=== PATIENT | female | born 1985 | race Caucasian/White ===

== ENCOUNTER 2017-02-28 06:00 | Inpatient (IN) | payer BC ==
--- NOTE | 2017-02-27 19:15 | PCM.LDHP ---
L&D History of Present Illness - General Date of Service: 02/27/17 Admit Problem/Dx: Admission Diagnosis/Problem Admission Diagnosis/Problem Source of Information: Patient, Family, Old Records, RN Notes Reviewed, Other ( [place]) History Limitations: Reports: No Limitations - History of Present Illness Introduction:: 32 yo at term,being admitted for an elective C section secondary to Polyhydramnios. Her EDC is 03/10. Fairly unremarkable course of ,with the exception of the polydramnios. - Related Data Allergies/Adverse Reactions: Allergies Allergy/AdvReac Type Severity Reaction Status Date / Time No Known Allergies Allergy Verified 02/15/17 01:58 Home Medications: Home Meds PNV #116/Iron Fumarate/FA/DHA [Expecta Combo Pack] 1 tab-cap PO DAILY 02/15/17 [History] buPROPion [Wellbutrin XL] 150 mg PO DAILY 02/15/17 [History] Past Medical History EDGE DYER History: Reports: , Spontaneous , Other (See Below) Other OB/BYN History: c/s deliveries Psychiatric History: Reports: Anxiety Hematologic History: Reports: Other (See Below) Other Hematologic History: low hgb following miscarriage [id number] - Infectious Disease History Infectious Disease History: Reports: Chicken Pox - Past Surgical History HEENT Surgical History: Reports: Adenoidectomy, Oral Surgery, Tonsillectomy Social & Family History - Family History Family Medical History: Noncontributory - Tobacco Use Smoking Status *Q: Never Smoker Second Hand Smoke Exposure: No - Caffeine Use Caffeine Use: Reports: None - Recreational Drug Use Recreational Drug Use: No H&P Review of Systems - Review of Systems: Review Of Systems: ROS reveals no pertinent complaints other than HPI. L&D Exam - Exam Exam: See Below - Vital Signs Weight: 104.326 kg - Exam General: Alert, Oriented, Cooperative HEENT: PERRLA, Conjunctiva Clear Neck: Supple Lungs: Clear to Auscultation, Normal Respiratory Effort Cardiovascular: Regular Rate, Regular Rhythm. No: Systolic Murmur, Diastolic Murmur Abdomen: Normal Bowel Sounds, Soft Rectal Exam: Deferred Genitourinary: Normal external exam, Cervical dilitation. No: Vaginal bleeding Back Exam: Normal Inspection, Full Range of Motion Extremities: Normal Inspection Skin: Warm, Dry Neurological: Cranial Nerves Intact, Reflexes Equal Bilateral, Strength Equal Bilateral, Sensation Intact. No: Focal Deficit Psychiatric: Alert, Normal Affect, Normal Mood - Patient Data Imaging Impressions Last 24 hrs: Biophysical Profile 03/25 last week - Problem List (1) Polyhydramnios affecting SNOMED Code(s): 21243667, 191812313 ICD Code: O40.9XX0 - POLYHYDRAMNIOS, UNSP TRIMESTER, NOT APPLICABLE OR UNSP Status: Acute (2) H/O: section SNOMED Code(s): 206773787 ICD Code: Z98.891 - HISTORY OF UTERINE SCAR FROM PREVIOUS SURGERY Status: Acute Priority: Medium Problem List Initiated/Reviewed/Updated: Yes Assessment/Plan Comment:: Discussed benefits,risks,alternatives. Will proceed with repeat C section.
[~2017-02-28 06:00] MED LIST: Citric Acid/Sodium Citrate Solution 30 ML Cup PO ONE; Lactated Ringers 1,000 ML IV ONE; Scopolamine 1.5 MG Transdermal Patch TRDERM PRN; Sodium Chloride 0.9% 10 ML Syringe FLUSH PRN
[2017-02-28] MEDS ORDERED: Oxytocin 10 Units/1 ML SDV IV ONE (08:00)
[2017-02-28] MEDS ORDERED: Midazolam 1 MG/ML 2 ML SDV IV ONE (08:00)
[2017-02-28] MEDS ORDERED: Ondansetron 4 MG/2 ML SDV IVPUSH ONE (08:00)
[2017-02-28] MEDS ORDERED: Morphine PF 10 MG/10 ML SDV ONE (08:00)
[2017-02-28] MEDS ORDERED: ceFAZolin 1 GM Vial IV ONE (08:00)
[2017-02-28] MEDS ORDERED: Bupivacaine 0.75%/D5W 2 ML Amp ISPINAL ONE (08:00)
[2017-02-28] MEDS ORDERED: fentaNYL 100 MCG/2 ML SDV IV ONE (08:00)
[2017-02-28] MEDS ORDERED: Lactated Ringers 1,000 ML IV ONE (08:00)
[2017-02-28] MEDS ORDERED: ePHEDrine 50 MG/ML SDV IVPUSH PRN (09:12)
[2017-02-28] MEDS ORDERED: Naloxone 0.4 MG/ML SDV IVPUSH PRN ×2 (09:12→11:15)
--- NOTE | 2017-02-28 10:16 | OR ---
DATE OF OPERATION: 02/28/2017 SURGEON: Nader Hernandez MD PROCEDURE: section. PREOPERATIVE DIAGNOSES: 1. Polyhydramnios. 2. Repeat section. DISCHARGE DIAGNOSES: 1. Polyhydramnios. 2. Repeat section. ACCOUNTS RECEIVABLE ASSOCIATE: Dr. Sexton. ANESTHESIA: Regional. PERMIT: The patient accepted the risks and benefits of this procedure including bleeding, infection, and injury to the internal organs. DETAILS OF THE PROCEDURE: The patient was taken to the OR. She was draped and prepped in the usual sterile fashion lying on the supine position with a leftward tilt. A Pfannenstiel incision was made along the previous scar making sure to cauterize all the blood vessels encountered. The rectus fascia was scored in the middle and extended laterally with Ashley scissors. Using Elodia clamps, the rectus fascia was tented and the muscles sharply dissected from both the inferior and superior portions. The rectus muscles were in the middle using a knife and the peritoneum was entered sharply. After adequate exposure, a bladder blade was inserted, and an incision was made along the lower uterine segment. This was extended digitally in a caudocephalad fashion. The baby's head was delivered, and then, the entire baby delivered atraumatically. The cord was cut and clamped and the baby was handed to the awaiting nurses. Cord blood was obtained and the placenta was manually extracted. The uterus was exteriorized and the uterine incision closed in two layers to achieve adequate hemostasis. The uterus was returned to the maternal abdomen, and all the gutters were cleaned of all debris and clots. The rectus fascia was then closed with 0 Vicryl. The Dread's fascia and subcutaneous tissue were closed with 3-0 running stitch which was used to close the skin subcutaneously. The count was correct for laps, needles, and instruments x3. The patient received 2 g of Ancef before the incision. Estimated blood loss was about 400 mL. The baby was 9 pounds 3 ounce female live with score of 9 and 9. /[id number] SUZETTE/JANIE
[2017-02-28] MEDS: diphenhydrAMINE 50 MG/ML SDV IVPUSH PRN ×2 (10:51→18:14)
[2017-02-28] MEDS ORDERED: hydrOXYzine HCl 50 MG/ML SDV IM PRN (11:15)
[2017-02-28] MEDS ORDERED: Morphine 2 MG/ML Syringe IVPUSH PRN (11:15)
[2017-02-28] MEDS ORDERED: Promethazine 25 MG/ML SDV IV PRN ×2 (11:15)
[2017-02-28] MEDS ORDERED: Naloxone 0.4 MG in Sodium Chloride 0.9% 100 ML IV PRN (11:15)
[2017-02-28] MEDS ORDERED: diphenhydrAMINE 50 MG/ML SDV IVPUSH PRN (11:15)
[2017-02-28] MEDS ORDERED: Nalbuphine 10 MG/1 ML Vial IVPUSH PRN (11:15)
[2017-02-28] MEDS ORDERED: Ondansetron 4 MG/2 ML SDV IVPUSH PRN (11:17)
[2017-02-28] MEDS: Lactated Ringers 1,000 ML IV SCH ×3 (12:30→20:50)
[2017-02-28] MEDS: buPROPion 150 MG Tab.ER PO SCH (15:20)
[2017-03-01] MEDS: Ketorolac 15 MG/ML SDV IVPUSH PRN ×2 (00:54→07:23)
[2017-03-01] MEDS: diphenhydrAMINE 50 MG/ML SDV IVPUSH PRN (00:54)
[2017-03-01] MEDS: Lactated Ringers 1,000 ML IV SCH (00:55)
[2017-03-01] MEDS ORDERED: Remove SCOP Patch TRDERM ONE (07:00)
--- NOTE | 2017-03-01 08:53 | PCM.PNPP ---
- General Info Date of Service: 03/01/17 Functional Status: Reports: pain controlled, tolerating diet - Review of Systems General: Reports: No Symptoms HEENT: Reports: no symptoms Pulmonary: Reports: no symptoms Cardiovascular: Reports: No Symptoms Gastrointestinal: Reports: No symptoms Genitourinary: Reports: no symptoms Musculoskeletal: Reports: no symptoms Skin: Reports: no symptoms Neurological: Reports: No Symptoms Psychiatric: Reports: no symptoms - General Info Date of Service: 03/01/17 - Patient Data Vital Signs - most recent: Last Vital Signs Temp 99.1 F 02/28/17 20:00 Pulse 76 02/28/17 20:00 Resp 17 02/28/17 20:00 BP 100/56 L 02/28/17 20:00 Pulse Ox 96 02/28/17 20:00 Weight - most recent: 102.965 kg I&O - last 24 hours: Intake & Output 02/28/17 03/01/17 03/01/17 22:59 06:59 14:59 Intake Total 2700 600 Output Total 2200 1200 Balance 500 -600 Lab Results - last 24 hrs: Laboratory Results - last 24 hr 03/01/17 Range/Units 06:10 WBC 8.7 (4.5-12.0) X10-3/uL RBC 3.93 (3.23-5.20) x10(6)uL Hgb 11.3 L (11.5-15.5) g/dL Hct 34.0 (30.0-51.3) % MCV 86.4 (80-96) fL MCH 28.6 (27.7-33.6) pg MCHC 33.2 (32.2-35.4) g/dL RDW 13.7 (11.5-15.5) % Plt Count 132 (125-369) X10(3)uL Med Orders - Current: Current Medications Bupropion HCl (Wellbutrin Xl) 150 mg PO DAILY JOHNATHON Last Admin: 02/28/17 15:20 Dose: 150 mg Diphenhydramine HCl (Benadryl) 25 mg IVPUSH Q6H PRN PRN Reason: Itching or Nausea Last Admin: 03/01/17 00:54 Dose: 25 mg Diphenhydramine HCl (Benadryl) 25 mg IVPUSH ASDIRECTED PRN PRN Reason: PRURITUS Last Admin: 02/28/17 11:37 Dose: 25 mg Ephedrine Sulfate (Ephedrine Sulfate) 5 mg IVPUSH ASDIRECTED PRN PRN Reason: Other Hydroxyzine HCl (Vistaril) 25 - 50 mg IM Q4H PRN PRN Reason: N/V Lactated Ringer's (Ringers, Lactated) 1,000 mls @ 250 mls/hr IV ASDIRECTED JOHNATHON Last Admin: 03/01/17 00:55 Dose: 250 mls/hr Naloxone HCl 0.4 mg/ Sodium (Chloride) 101 mls @ 25 mls/hr IV ASDIRECTED PRN PRN Reason: RESPIRATORY STATUS Ketorolac Tromethamine (Toradol) 15 mg IVPUSH Q6H PRN PRN Reason: BREAKTHRU PAIN Last Admin: 03/01/17 07:23 Dose: 15 mg Morphine Sulfate (Morphine) 2 mg IVPUSH Q1H PRN PRN Reason: BREAKTHRU PAIN Nalbuphine HCl (Nubain) 10 mg IVPUSH Q1H PRN PRN Reason: PRURITUS Naloxone HCl (Narcan) 0.1 mg IVPUSH ASDIRECTED PRN PRN Reason: RESPIRATORY STATUS Ondansetron HCl (Zofran) 4 mg IVPUSH Q6H PRN PRN Reason: NAUSEA/VOMITING Promethazine HCl (Phenergan) 6.25 mg IV Q4H PRN PRN Reason: N/V Promethazine HCl (Phenergan) 12.5 mg IV Q4H PRN PRN Reason: N/V Scopolamine (Transderm-Scop) 1.5 mg TRDERM Q72H PRN PRN Reason: Nausea Last Admin: 02/28/17 07:00 Dose: 1.5 mg Sodium Chloride (Saline Flush) 10 ml FLUSH ASDIRECTED PRN PRN Reason: Keep Vein Open Last Admin: 02/28/17 07:00 Dose: 10 ml Discontinued Medications Bupivacaine HCl/Dextrose (Marcaine 0.75% Spinal) 1.4 ml ISPINAL .STK-MED ONE Stop: 02/28/17 08:01 Cefazolin Sodium (Ancef) 2 gm IV .STK-MED ONE Stop: 02/28/17 08:01 Citric Acid/Sodium Citrate (Bicitra Solution) 30 ml PO ONETIME ONE Stop: 02/28/17 06:01 Last Admin: 02/28/17 07:47 Dose: 30 ml Fentanyl (Sublimaze) 100 mcg IV .STK-MED ONE Stop: 02/28/17 08:01 Lactated Ringer's (Ringers, Lactated) 1,000 mls @ 999 mls/hr IV BOLUS ONE Stop: 02/28/17 07:00 Last Admin: 02/28/17 07:00 Dose: 999 mls/hr Lactated Ringer's (Ringers, Lactated) 1,000 mls @ as directed IV .STK-MED ONE Stop: 02/28/17 08:01 Midazolam HCl (Versed 1 Mg/Ml) 2 mg IV .STK-MED ONE Stop: 02/28/17 08:01 Miscellaneous Information (Remove Patch) 1 ea TRDERM ONETIME ONE Stop: 03/01/17 07:01 Morphine Sulfate (Duramorph Pf) 0.4 mg .XX .STK-MED ONE Stop: 02/28/17 08:01 Naloxone HCl (Narcan) 0.1 mg IVPUSH ONETIME PRN PRN Reason: Respiratory Depression Stop: 02/28/17 09:13 Ondansetron HCl (Zofran) 4 mg IVPUSH .STK-MED ONE Stop: 02/28/17 08:01 Oxytocin (Pitocin) 20 unit IV .STK-MED ONE Stop: 02/28/17 08:01 - Interaction Infant Disposition, : in Room with Family Support Person: - Recovery Exam Fundal Tone: Firm Fundal Level: 3 Fingerbreadths Above Umbilicus Fundal Placement: Midline Lochia Amount: Moderate Lochia Color: Rubra/Red Perineum Description: Intact, Minimal Bruising/Swelling Bladder Status: Indwelling Catheter in Place Urinary Elimination: Indwelling Catheter - Exam General: alert, oriented HEENT: Pupils equal Neck: supple Lungs: Clear to auscultation, Normal respiratory effort Cardiovascular: Regular Rate, Regular Rhythm Abdomen: bowel sounds present, soft, no tenderness, no distension Extremities: no edema Skin: warm, dry, intact Wound/Incisions: healing well Neurological: no new focal deficit Psy/Mental Status: alert, normal affect, normal mood - Problem List & Annotations (1) Polyhydramnios affecting SNOMED Code(s): 57752139, 893038269 Code(s): O40.9XX0 - POLYHYDRAMNIOS, UNSP TRIMESTER, NOT APPLICABLE OR UNSP Status: Acute Current Visit: Yes (2) H/O: section SNOMED Code(s): 136304740 Code(s): Z98.891 - HISTORY OF UTERINE SCAR FROM PREVIOUS SURGERY Status: Acute Priority: Medium Current Visit: Yes (3) care and examination SNOMED Code(s): 641102346, 541174957, 159154605 Code(s): Z39.2 - ENCOUNTER FOR ROUTINE FOLLOW-UP Status: Acute Current Visit: Yes - Problem List Review Problem List Initiated/Reviewed/Updated: Yes - My Orders Last 24 Hours: My Active Orders 02/28/17 09:12 Communication Order [RC] Per Unit Routine Communication Order [RC] Per Unit Routine Communication Order [RC] Per Unit Routine Intake and Output [RC] 14,,06 RT Incentive Spirometry [RC] Q4HWA diphenhydrAMINE [Benadryl] 25 mg IVPUSH Q6H PRN ePHEDrine [ePHEDrine Sulfate] 5 mg IVPUSH ASDIRECTED PRN Abdominal Binder [OM.PC] Per Unit Routine Breast Pump [WOMSER] Per Unit Routine Resuscitation Status Routine 02/28/17 09:15 Lactated Ringers [Ringers, Lactated] 1,000 ml IV ASDIRECTED 02/28/17 14:30 buPROPion [Wellbutrin XL] 150 mg PO DAILY 03/01/17 Breakfast Regular Diet [DIET] - Plan Plan:: BERTRAM IVF. BERTRAM HANLEY Start oral narcs for pain
[2017-03-01] MEDS: buPROPion 150 MG Tab.ER PO SCH (09:22)
[2017-03-01] MEDS: Ibuprofen 600 MG Tab PO SCH ×3 (09:25→21:20)
[2017-03-01] MEDS: Acetaminophen/HYDROcodone 325-5 MG Tab PO PRN ×2 (13:36→18:28)
[2017-03-02] MEDS: Ibuprofen 600 MG Tab PO SCH ×2 (03:14→08:12)
[2017-03-02] MEDS: Acetaminophen/HYDROcodone 325-5 MG Tab PO PRN (06:06)
[2017-03-02] MEDS: buPROPion 150 MG Tab.ER PO SCH (08:11)
[2017-03-02 08:16] VITALS: BP 118/64
--- NOTE | 2017-03-02 09:11 | PCM.PNPP ---
- General Info Date of Service: 03/02/17 - Review of Systems General: Reports: No Symptoms HEENT: Reports: no symptoms Pulmonary: Reports: no symptoms Cardiovascular: Reports: No Symptoms Gastrointestinal: Reports: No symptoms Genitourinary: Reports: no symptoms Musculoskeletal: Reports: no symptoms Skin: Reports: no symptoms Neurological: Reports: No Symptoms Psychiatric: Reports: no symptoms - General Info Date of Service: 03/02/17 - Patient Data Vital Signs - most recent: Last Vital Signs Temp 98.5 F 03/02/17 08:14 Pulse 80 03/02/17 08:14 Resp 16 03/02/17 08:14 BP 118/64 03/02/17 08:14 Pulse Ox 98 03/01/17 20:00 Weight - most recent: 102.965 kg I&O - last 24 hours: Intake & Output 03/01/17 03/02/17 03/02/17 22:59 06:59 14:59 Intake Total 400 700 Output Total 650 Balance -250 700 Med Orders - Current: Current Medications Hydrocodone Bitart/Acetaminophen (Albertson 325-5 Mg) 1 tab PO Q4H PRN PRN Reason: Breakthrough Pain Last Admin: 03/02/17 06:06 Dose: 1 tab Bupropion HCl (Wellbutrin Xl) 150 mg PO DAILY JOHNATHON Last Admin: 03/02/17 08:11 Dose: 150 mg Diphenhydramine HCl (Benadryl) 25 mg IVPUSH Q6H PRN PRN Reason: Itching or Nausea Last Admin: 03/01/17 00:54 Dose: 25 mg Diphenhydramine HCl (Benadryl) 25 mg IVPUSH ASDIRECTED PRN PRN Reason: PRURITUS Last Admin: 02/28/17 11:37 Dose: 25 mg Ephedrine Sulfate (Ephedrine Sulfate) 5 mg IVPUSH ASDIRECTED PRN PRN Reason: Other Hydroxyzine HCl (Vistaril) 25 - 50 mg IM Q4H PRN PRN Reason: N/V Naloxone HCl 0.4 mg/ Sodium (Chloride) 101 mls @ 25 mls/hr IV ASDIRECTED PRN PRN Reason: RESPIRATORY STATUS Ibuprofen (Motrin) 600 mg PO Q6H JOHNATHON Last Admin: 03/02/17 08:12 Dose: 600 mg Morphine Sulfate (Morphine) 2 mg IVPUSH Q1H PRN PRN Reason: BREAKTHRU PAIN Nalbuphine HCl (Nubain) 10 mg IVPUSH Q1H PRN PRN Reason: PRURITUS Naloxone HCl (Narcan) 0.1 mg IVPUSH ASDIRECTED PRN PRN Reason: RESPIRATORY STATUS Ondansetron HCl (Zofran) 4 mg IVPUSH Q6H PRN PRN Reason: NAUSEA/VOMITING Promethazine HCl (Phenergan) 6.25 mg IV Q4H PRN PRN Reason: N/V Promethazine HCl (Phenergan) 12.5 mg IV Q4H PRN PRN Reason: N/V Scopolamine (Transderm-Scop) 1.5 mg TRDERM Q72H PRN PRN Reason: Nausea Last Admin: 02/28/17 07:00 Dose: 1.5 mg Sodium Chloride (Saline Flush) 10 ml FLUSH ASDIRECTED PRN PRN Reason: Keep Vein Open Last Admin: 02/28/17 07:00 Dose: 10 ml Discontinued Medications Bupivacaine HCl/Dextrose (Marcaine 0.75% Spinal) 1.4 ml ISPINAL .STK-MED ONE Stop: 02/28/17 08:01 Cefazolin Sodium (Ancef) 2 gm IV .STK-MED ONE Stop: 02/28/17 08:01 Citric Acid/Sodium Citrate (Bicitra Solution) 30 ml PO ONETIME ONE Stop: 02/28/17 06:01 Last Admin: 02/28/17 07:47 Dose: 30 ml Fentanyl (Sublimaze) 100 mcg IV .STK-MED ONE Stop: 02/28/17 08:01 Lactated Ringer's (Ringers, Lactated) 1,000 mls @ 999 mls/hr IV BOLUS ONE Stop: 02/28/17 07:00 Last Admin: 02/28/17 07:00 Dose: 999 mls/hr Lactated Ringer's (Ringers, Lactated) 1,000 mls @ 250 mls/hr IV ASDIRECTED JOHNATHON Last Admin: 03/01/17 00:55 Dose: 250 mls/hr Lactated Ringer's (Ringers, Lactated) 1,000 mls @ as directed IV .STK-MED ONE Stop: 02/28/17 08:01 Ketorolac Tromethamine (Toradol) 15 mg IVPUSH Q6H PRN PRN Reason: BREAKTHRU PAIN Last Admin: 03/01/17 07:23 Dose: 15 mg Midazolam HCl (Versed 1 Mg/Ml) 2 mg IV .STK-MED ONE Stop: 02/28/17 08:01 Miscellaneous Information (Remove Patch) 1 ea TRDERM ONETIME ONE Stop: 03/01/17 07:01 Last Admin: 03/01/17 07:00 Dose: 1 ea Morphine Sulfate (Duramorph Pf) 0.4 mg .XX .STK-MED ONE Stop: 02/28/17 08:01 Naloxone HCl (Narcan) 0.1 mg IVPUSH ONETIME PRN PRN Reason: Respiratory Depression Stop: 02/28/17 09:13 Ondansetron HCl (Zofran) 4 mg IVPUSH .STK-MED ONE Stop: 02/28/17 08:01 Oxytocin (Pitocin) 20 unit IV .STK-MED ONE Stop: 02/28/17 08:01 - Infant Interaction Infant Disposition, : in Room with Family Support Person: - Recovery Exam Fundal Tone: Firm Fundal Level: 2 Fingerbreadths Above Umbilicus Fundal Placement: Midline Lochia Amount: Small Lochia Color: Rubra/Red Perineum Description: Intact, Minimal Bruising/Swelling Bladder Status: Indwelling Catheter in Place Urinary Elimination: Voided - Exam General: alert, oriented HEENT: Pupils equal Neck: supple Lungs: Clear to auscultation, Normal respiratory effort Cardiovascular: Regular Rate, Regular Rhythm Abdomen: bowel sounds present, soft, no tenderness, no distension Extremities: no edema Skin: warm, dry, intact Wound/Incisions: healing well Neurological: no new focal deficit Psy/Mental Status: alert, normal affect, normal mood - Problem List & Annotations (1) Polyhydramnios affecting SNOMED Code(s): 52653651, 511471794 Code(s): O40.9XX0 - POLYHYDRAMNIOS, UNSP TRIMESTER, NOT APPLICABLE OR UNSP Status: Acute Current Visit: Yes (2) H/O: section SNOMED Code(s): 326086910 Code(s): Z98.891 - HISTORY OF UTERINE SCAR FROM PREVIOUS SURGERY Status: Acute Priority: Medium Current Visit: Yes (3) care and examination SNOMED Code(s): 339624235, 784798213, 711309961 Code(s): Z39.2 - ENCOUNTER FOR ROUTINE FOLLOW-UP Status: Acute Current Visit: Yes - Problem List Review Problem List Initiated/Reviewed/Updated: Yes - My Orders Last 24 Hours: My Active Orders 03/01/17 08:54 Acetaminophen/HYDROcodone [Albertson 325-5 MG] 1 tab PO Q4H PRN Peripheral IV Discontinue [OM.PC] Routine 03/01/17 09:00 Ibuprofen [Motrin] 600 mg PO Q6H 03/01/17 16:19 Dressing Change [Wound Care] [RC] DAILY - Assessment Assessment:: Post Day #2 Wants to go home.BERTRAM home.Incision check 2 weeks - Plan Plan:: BERTRAM IVF. BERTRAM HANLEY Start oral narcs for pain
--- NOTE | 2017-03-03 00:28 | DISCH ---
DISCHARGE DATE: 03/02/2017 REASON FOR ADMISSION: 1. Elective section. 2. Polyhydramnios. 3. Depression. BRIEF HISTORY AND HOSPITAL COURSE: A 32-year-old female who came in for an elective repeat section because of polyhydramnios. EDC was 03/10. She did well. Dr. Sexton and I performed the procedure on the with no complications. Postoperatively, she was able to eat within 6-8 hours. She was able to walk. Output was good. Hemoglobin was 11.3. Vital signs remained stable. Pain was well controlled. She will be discharged home on vitamins, home dose of Wellbutrin, and hydrocodone to use p.r.n. for pain. FOLLOWUP: In two weeks. Please note that I spent 35 minutes in the discharge of the patient. /[id number] SUZETTE/JANIE
== END 2017-03-02 10:00 | disposition home or self-care (01) | DRG 540 ==
LOC: FB.OB 06:00
PROVIDERS: ADMIT Family Medicine; ATTEND Family Medicine
PROC: 10D00Z1 Extraction of Products of Conception, Low, Open Approach (ICD-10-PCS; principal; 2017-02-28)
DX: O40.3XX0 Polyhydramnios, third trimester, not applicable or unspecified (principal); O34.211 Maternal care for low transverse scar from previous cesarean delivery; N85.8 Other specified noninflammatory disorders of uterus; O99.344 Other mental disorders complicating childbirth; F32.9 Major depressive disorder, single episode, unspecified; F41.9 Anxiety disorder, unspecified; Z79.899 Other long term (current) drug therapy; Z3A.38 38 weeks gestation of pregnancy; Z37.0 Single live birth
CPT/HCPCS: 36415; 85025; 85027; 86850; 86900; 86901; 88307; 94150; A9270-GY; J0690; J1200; J1885; J2250; J2270; J2405; J2590; J3010; J7050; J7120

== ENCOUNTER 2023-03-20 16:36 | Emergency (ER) | payer BC ==
[2023-03-20] MEDS ORDERED: Sodium Chloride 0.9% 1,000 ML IV ONE ×2 (16:51→16:52)
[2023-03-20] MEDS ORDERED: Metoclopramide 10 MG/2 ML SDV IVPUSH ONE (16:54)
[2023-03-20] MEDS ORDERED: Ketorolac 30 MG/ML SDV IVPUSH ONE (16:54)
[2023-03-20 17:22] LABS: BASOPHILS PERCENT AUTO 0.3 % (0.2-1.5); EOSINOPHILS PERCENT AUTO 0.4 % (0.6-8.1); HEMATOCRIT 44.6 % (34.2-48.2); HEMOGLOBIN 15.1 g/dL (11.4-15.5); LYMPHOCYTES ABSOLUTE AUTO 1.5 x10-3/uL (1.0-4.4); LYMPHOCYTES PERCENT AUTO 17.5 % (18.4-52.1); MEAN CORPUSCULAR HEMOGLOBIN 30.6 pg (23.9-33.9); MEAN CORPUSCULAR HGB CONC 33.8 g/dL (31.9-34.8); MEAN CORPUSCULAR VOLUME 90.7 fL (76.7-100.5); MEAN PLATELET VOLUME 8.4 fL (7.1-12.4); MONOCYTES ABSOLUTE AUTO 0.4 x10-3/uL (0.3-1.0); MONOCYTES PERCENT AUTO 5.2 % (4.4-15.7); NEUTROPHILS ABSOLUTE AUTO 6.5 x10-3/uL (1.5-6.3); NEUTROPHILS PERCENT AUTO 76.6 % (30.8-76.2); PLATELET COUNT,PLT 210 x10(3)uL (151-488); RED BLOOD CELL COUNT 4.92 x10(6)uL (3.60-5.20); RED CELL DISTRIBUTION WIDTH 13.9 % (12.3-16.5); WHITE BLOOD CELL COUNT,WBC 8.4 x10-3/uL (3.0-10.3)
[2023-03-20 17:26] LABS: BLOOD UREA NITROGEN,BUN 11 mg/dL (7-18); BUN/CREATININE RATIO 12.2 (9-20); CALCIUM 9.2 mg/dL (8.6-10.2); CARBON DIOXIDE,CO2 26 mmol/L (21-32); CHLORIDE,CL 102 mmol/L (100-110); CREATININE 0.9 mg/dL (0.55-1.02); EST CRCL DRUG DOSING (CG) 74.62 mL/min; ESTIMATED GFR 85 mL/min (>60); GLUCOSE RANDOM 114 mg/dL (80-116); POTASSIUM,K 3.6 mmol/L (3.5-5.3); SODIUM,NA 138 mmol/L (135-145)
[2023-03-20 17:32] LABS: A/G RATIO 1.1; ALANINE AMINOTRANSFERASE,ALT 22 U/L (12-36); ALKALINE PHOSPHATASE 54 IU/L (56-112); ASPARTATE AMNIOTRANSFERASE,AST 15 IU/L (5-25); BILIRUBIN TOTAL 0.7 mg/dL (0.1-1.3); CREATINE KINASE,CK 121 IU/L (60-160); PROTEIN TOTAL,TP 7.5 g/dL (6.0-8.0)
[2023-03-20 17:43] LABS: APPEARANCE,URINE CLEAR (CLEAR); BACTERIA,URINE RARE (NS); BILIRUBIN,URINE NEGATIVE (NEGATIVE); COLOR,URINE YELLOW (YELLOW); GLUCOSE,URINE NORMAL (NORMAL); KETONES,URINE 15 mg/dL (NEGATIVE); LEUKOCYTE ESTERASE,URINE NEGATIVE (NEGATIVE); NITRITE,URINE NEGATIVE (NEGATIVE); OCCULT BLOOD,URINE NEGATIVE (NEGATIVE); PROTEIN,URINE NEGATIVE (NEGATIVE); RBC,URINE 0-5 (0-5); SQUAMOUS EPITHELIAL CELLS,UR RARE (NS,R,O); UROBILINOGEN,URINE NORMAL (NEGATIVE); WBC,URINE 0-5 (0-5)
[2023-03-20 19:26] VITALS: BP 104/64; PULSE 62
== END 2023-03-20 19:20 | disposition home or self-care (01) ==
LOC: FB.ED 16:36
DX: T67.5XXA Heat exhaustion, unspecified, initial encounter (principal); G44.209 Tension-type headache, unspecified, not intractable; E86.0 Dehydration; N17.9 Acute kidney failure, unspecified; R82.4 Acetonuria
CPT/HCPCS: 36415; 80053; 81001; 82550; 85025; 86140; 96361; 96374; 96375; 99284; 99284-25; J1885; J2765; J7030